=== PATIENT | male | born 1955 | race Caucasian/White ===

== ENCOUNTER 2021-01-19 13:07 | Emergency (ER) | payer MEDICARE ==
[~2021-01-19] VITALS: Ht 157.5 cm; Wt 70.5 kg
[2021-01-19 15:01] LABS: COVID AG,FIA SOURCE NASOPHARYNGEAL
[2021-01-19] MEDS: ACETAMINOPHEN 500 MG TABLET PO ONE (18:30)
[2021-01-19] MEDS: AZITHROMYCIN 500 MG TABLET PO ONE (18:31)
[2021-01-19 18:34] VITALS: BP 132/59
== END 2021-01-19 18:40 | disposition home or self-care (01) ==
LOC: EMS 13:12
DX: J18.0 Bronchopneumonia, unspecified organism (principal); I10 Essential (primary) hypertension; Z20.822 Contact with and (suspected) exposure to COVID-19
CPT/HCPCS: 71045; 87426; 99284; Q9967; U0003